=== PATIENT | male | born 1935 | race Two or more races ===

== ENCOUNTER 2019-04-24 10:57 | Inpatient (IN) | payer OTHER ==
[2019-04-24 11:03] VITALS: BMI 25.0
--- NOTE | 2019-04-24 12:56 | PDOC ---
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 He describes the pain as a squeezing and heavy sensation which is worse after he performs physical activity. The patient states he has also been very short of breath lately after performing routine physical activities. He denies chest pain or SOB at rest. He does endorse occasional difficulty lying flat of late. Patient states he has never had a heart attack and has never been formally diagnosed with heart failure. Patient endorses nausea with his chest pain but denies emesis. States the pain does not radiate to his neck, arm, or back. Denies fevers, chills, infections, cough, vomiting, back pain, headache, vision changes, dysuria, frequency, or urgency. PCP: Maykel Lua PSH: None reported Allergies: Aspirin Social Hx: Denies smoking, drinking, or other substance usage Meds: 1) Metformin 1000 2) Tamsulosin 0.4 3) Zolpidem 10 mg 4) Atorvastatin 10 mg 5) APAP 325 6) butalbital 50 7) caffeine 40 8) pioglitazone 30 mg 9) Amlodipine 10 mg 10) Torsemide 10 mg 11) Famotidine 40 mg 12) Oxybutinin 10 mg Past History - Past Medical History Allergies/Adverse Reactions: Allergies Allergy/AdvReac Type Severity Reaction Status Date / Time aspirin Allergy Verified 04/24/19 11:03 Home Medications: Ambulatory Orders Amlodipine Besylate 10 mg PO DAILY 04/24/19 Atorvastatin Calcium 10 mg PO DAILY 04/24/19 Butalb/Acetaminophen/Caffeine [Fioricet Tablet 50-325-40] 1 tab PO Q4H PRN 04/24 Famotidine [Pepcid -] 40 mg PO DAILY 04/24/19 Oxybutynin Chloride [Oxybutynin Chloride ER] 10 mg PO DAILY 04/24/19 Tamsulosin HCl 0.4 mg PO DAILY 04/24/19 Zolpidem Tartrate 10 mg PO HS PRN 04/24/19 metFORMIN HCL [Metformin ER Osmotic] 1,000 mg PO BID 04/24/19 COPD: No Diabetes: Yes GI Disorders: Yes (ULCER) HTN: Yes - Psycho Social/Smoking Cessation Hx Smoking History: Never smoked Hx Alcohol Use: No Drug/Substance Use Hx: No Review of Systems - Review of Systems Able to Perform ROS?: Yes Comments:: CONSTITUTIONAL: Absent: fever, no chills, no fatigue EYES: Absent: visual changes ENT: Absent: ear pain, no sore throat CARDIOVASCULAR: Present: Chest pain Absent: no palpitations RESPIRATORY: Present: SOB Absent: cough GI: Present: Nausea Absent: abdominal pain, no vomiting, no constipation, no diarrhea GENITOURINARY: Absent: dysuria, no frequency, no hematuria MUSKULOSKELETAL: Absent: back pain, no arthralgia, no myalgia SKIN: Absent: rash NEURO: Absent: headache *Physical Exam - Vital Signs Last Vital Signs Temp Pulse Resp BP Pulse Ox 98.5 F 79 16 180/85 H 100 04/24/19 11:00 04/24/19 11:50 04/24/19 11:50 04/24/19 11:50 04/24/19 11:50 - Physical Exam GENERAL: Well-appearing, well-nourished. No apparent distress. HEENT: Left eye white and blind. Normocephalic, atraumatic. PERRL, EOM intact. CARDIOVASCULAR: Normal S1, S2. Regular rate and rhythm. PULMONARY: There are b/l crackles at the lung bases. No evidence of respiratory distress. No wheezing or rhonchi. ABDOMEN: Soft, non-distended, non-tender. EXTREMITIES: 1+ edema in both lower legs. Normal ROM in all four extremities. No gross deformities. SKIN: Warm, dry. No rash NEUROLOGICAL: No focal neurological deficits. Heart Score/ECG Review - History History: Moderately suspicious - Electrocardiogram EKG: Normal - Age Age: >/= 65 - Risk Factors Risk Factors Heart Score: Yes Hx Hypercholesterolemia, Yes Hx Hypertension, Yes Hx Diabetes, Yes Positive family hx of cardiac disease Based on the list above the patient has:: >/=3 risk factors or Hx atherosclerotic disease - Troponin Troponin: </= normal limit - Score Heart Score - Total: 5 - ECG Intrepretation Rhythm: Regular Rhythm - Eastpoint Eastpoint: Normal - P and TN Atrial Enlargement: Left - QRS Poor R Wave Progression: No Q Wave Present: No - ST and T Early Repolarization: No Non Specific ST-T Wave changes: No Flattened T Waves: No Prolonged Q-T Interval: No - ECG Impressions Normal ECG: No Non-specific ST Elevation: No Ischemic Changes: No ED Treatment Course - LABORATORY CBC & Chemistry Diagram: 04/24/19 13:20 04/24/19 13:20 Medical Decision Making - Medical Decision Making Anila Boss is an 83 yo M w a hx of HTN, HCL, NIDDM, 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 He describes the pain as a squeezing and heavy sensation which is worse after he performs physical activity. The patient states he has also been very short of breath lately after performing routine physical activities. He denies chest pain or SOB at rest. He does endorse occasional difficulty lying flat of late. Patient states he has never had a heart attack and has never been formally diagnosed with heart failure. Patient endorses nausea with his chest pain but denies emesis. States the pain does not radiate to his neck, arm, or back. Vital Signs Temp Pulse Resp BP Pulse Ox 98.5 F 79 16 180/85 H 100 04/24/19 11:00 04/24/19 11:50 04/24/19 11:50 04/24/19 11:50 04/24/19 11:50 DDx IBNLT: ACS - NSTEMI vs unstable angina, heart failure, electrolyte/ metabolic disturbance, renal failure, PNA, pneumothorax Plan: Labs, EKG, CXR, Cardiac consult, admit Tele Labs: Hyperkalemia, elevated BUN/Cr EKG: NS rate 87, narrow complexes w premature atrial complexes, normal axis, LAE , no ST elevations or depressions, no Q waves, no abnormal TWI's. QTc 450. CXR: unremarkable Disposition: Admit to Tele for chest pain Discharge - Discharge Information Problems reviewed: Yes Clinical Impression/Diagnosis: Hyperkalemia, AMINATA (acute kidney injury) Chest pain Qualifiers: Chest pain type: unspecified Qualified Code(s): R07.9 - Chest pain, unspecified Condition: Stable - Admission Yes - Follow up/Referral Referrals: Lua,Maykel S [Primary Care Provider] - - Patient Discharge Instructions - Post Discharge Activity
[2019-04-24 13:37] LABS: HEMATOCRIT 36.1 % (35.4-49); HEMOGLOBIN 12.1 GM/dL (11.7-16.9); MCH 29.2 pg (25.7-33.7); MCHC 33.6 g/dl (32.0-35.9); MEAN CELL VOLUME 86.8 fl (80-96); MEAN PLT VOLUME 9.1 fl (7.5-11.1); PLATELET COUNT 215 K/MM3 (134-434); RBC 4.16 M/mm3 (4.00-5.60); RDW 13.8 % (11.9-15.9)
[2019-04-24 13:50] LABS: WHITE BLOOD COUNT 6.5 K/mm3 (4.0-10.0)
[2019-04-24 14:07] LABS: ALBUMIN 3.8 g/dl (3.4-5.0); BILIRUBIN,TOTAL 0.2 mg/dL (0.2-1); CALCIUM 9.7 mg/dL (8.5-10.1); CREATININE 1.7 mg/dL (0.55-1.3); POTASSIUM 5.6 mmol/L (3.5-5.1); TOT PROT 7.7 g/dl (6.4-8.2)
[2019-04-24] MEDS ORDERED: FUROSEMIDE 40 MG/4 ML INJECTABLE VIAL IVPUSH ONE (14:14)
[2019-04-24] MEDS ORDERED: FUROSEMIDE 40 MG/4 ML INJECTABLE VIAL ONE ×2 (14:18→16:16)
--- NOTE | 2019-04-24 16:04 | PDOC ---
Attending Attestation - Resident Resident Name: Abhijit Burch - ED Attending Attestation I have performed the following: I have examined & evaluated the patient, The case was reviewed & discussed with the resident, I agree w/resident's findings & plan - HPI HPI: 04/24/19 15:58 83-year-old male with multiple medical problems including [id number]-[id number] diabetes, hypertension presents with episode of chest pain this morning with shortness of breath, now resolved. Patient has history of gastritis, reports chest burning symptoms occasionally associated with some shortness of breath, had a stronger episode this morning while at rest at home, presents for evaluation. Denies any exertional limitations at baseline, last stress test was about 10 years ago, denies any nausea/vomiting/diarrhea. Sees Dr. Felder for GI issues, ? gastritis diagnosis on PPI. - Physicial Exam PE: 04/24/19 16:02 elevated BP improved without intervention, afebrile, o2 sat wnl Well-appearing seated comfortably in stretcher Left eye cataract, moist mucosa Heart is regular without ectopy or murmur, lungs are clear Abdomen benign No edema - Medical Decision Making 04/24/19 16:03 83-year-old male with multiple cardiac risk factors presents with epigastric/ chest discomfort and shortness of breath this morning, now resolved. Hemodynamically stable here without focality on exam, EKG not acutely ischemic. ACS most concerning on differential given risk factors and no recent cardiac evaluation, gastritis/GERD exacerbation is also on the differential. Labs including troponin are within normal limits EKG shows no acute ischemic changes Chest x-ray Admission Heart Score/ECG Review #1 ECG reviewed & interpreted by me at: 13:48 General ECG Interpretation: Sinus Rhythm, Normal Rate (88), Normal Intervals ( qtc 433, LVH), No acute ischemic changes Compared to previous ECG there are: Previous ECG unavail
--- NOTE | 2019-04-24 16:10 | CON.CARD ---
Consult Consult Specialty:: Cardiology Referred by:: Emergency Medicine Reason for Consultation:: Chest burning, dyspnea, HTN urgency - History of Present Illness Chief Complaint: Chest burning, dyspnea History of Present Illness: Anila Boss is an 83 yo M w a hx of HTN, HCL, NIDDM, diabetic retinopathy s/ p Left eye blindness, gastritis and BPH who presents to the [facility] er with two days of burning substernal chest pressure worse post-prandial, denies exertional component. He denies chest pain or SOB at rest, orthopnea, PND or LE edema. Patient states he has never had a heart attack and has never been formally diagnosed with heart failure. Patient endorses nausea with his chest pain but denies emesis. He denies near or true syncope, palpitations. PCP: Maykel Lua PSH: None reported Allergies: Aspirin Social Hx: Denies smoking, drinking, or other substance usage - History Source History Provided By: Patient Limitations to Obtaining History: No Limitations - Past Medical History Cardio/Vascular: Yes: HTN, Hyperlipdemia Gastrointestinal: Yes: Gastritis, Hiatal Hernia - Alcohol/Substance Use Hx Alcohol Use: No - Smoking History Smoking history: Never smoked Home Medications - Allergies Allergies/Adverse Reactions: Allergies Allergy/AdvReac Type Severity Reaction Status Date / Time aspirin Allergy Verified 04/24/19 11:03 - Home Medications Home Medications: Ambulatory Orders Amlodipine Besylate 10 mg PO DAILY 04/24/19 Atorvastatin Calcium 10 mg PO DAILY 04/24/19 Butalb/Acetaminophen/Caffeine [Fioricet Tablet 50-325-40] 1 tab PO Q4H PRN 04/24 Famotidine [Pepcid -] 40 mg PO DAILY 04/24/19 Oxybutynin Chloride [Oxybutynin Chloride ER] 10 mg PO DAILY 04/24/19 Tamsulosin HCl 0.4 mg PO DAILY 04/24/19 Zolpidem Tartrate 10 mg PO HS PRN 04/24/19 metFORMIN HCL [Metformin ER Osmotic] 1,000 mg PO BID 04/24/19 Review of Systems - Review of Systems Cardiovascular: reports: Chest Pain, Shortness of Breath Gastrointestinal: reports: Nausea Vital Signs: Vital Signs Temperature 98.5 F 04/24/19 11:00 Pulse Rate 79 04/24/19 11:50 Respiratory Rate 16 04/24/19 11:50 Blood Pressure 180/85 H 04/24/19 11:50 O2 Sat by Pulse Oximetry (%) 100 04/24/19 11:50 Constitutional: Yes: No Distress, Calm, Thin Neck: Yes: Supple Respiratory: Yes: Regular, CTA Bilaterally Gastrointestinal: Yes: Normal Bowel Sounds, Soft Cardiovascular: Yes: Regular Rate and Rhythm JVD: No Carotid Bruit: No Heart Sounds: Yes: S1, S2 Murmur: Yes: Systolic Murmur, Grade 1 Edema: No - Other Data Labs, Other Data: CBC, BMP 04/24/19 13:20 04/24/19 13:20 Troponin, BNP 04/24/19 04/24/19 13:20 13:20 Troponin I 0.03 B-Natriuretic Peptide 241.5 Troponin, BNP 04/24/19 04/24/19 13:20 13:20 Troponin I 0.03 B-Natriuretic Peptide 241.5 NSR @ 87 PAC, LAE Ejection Fraction %: LVEF > or = 40 % Imaging - Results Chest X-ray: Report Reviewed (NAD) Problem List - Problems (1) Hypertensive heart disease Code(s): I11.9 - HYPERTENSIVE HEART DISEASE WITHOUT HEART FAILURE Qualifiers: Heart failure presence: without heart failure Qualified Code(s): I11.9 - Hypertensive heart disease without heart failure (2) Type 2 diabetes mellitus Code(s): E11.9 - TYPE 2 DIABETES MELLITUS WITHOUT COMPLICATIONS Qualifiers: Diabetes mellitus buttermaker helper insulin use: without fci use (3) AMINATA (acute kidney injury) Code(s): N17.9 - ACUTE KIDNEY FAILURE, UNSPECIFIED (4) Chest pain Code(s): R07.9 - CHEST PAIN, UNSPECIFIED Qualifiers: Chest pain type: precordial pain Qualified Code(s): R07.2 - Precordial pain (5) Hyperkalemia Code(s): E87.5 - HYPERKALEMIA Assessment/Plan EKG: NS rate 87, narrow complexes w premature atrial complexes, normal axis, LAE , no ST elevations or depressions, no Q waves, no abnormal TWI's. QTc 450. CXR: unremarkable 1. Chest pain, AVENDAÑO, hypertensive urgency, r/o ischemia vs diabetic gastroparesis 2. Type 2 DM c/b retinopathy and blindness OS 3. Hyperlipidemia 4. BPH P:1. Ruling out for [place], check TSH, lipid panel, Ha1c 2. Start carvedilol 6.25 bid, losartan once renal fxn and hyperkalemia stabilizes, Lipitor 10 qd, empirically change Pepcid 40 qd to Protonix 20 qd 3. Echocardiogram to assess ventricular and valve fxn 4. Stress testing to r/o ischemia may be performed as outpatient 5. Thank you for consultative opportunity
[2019-04-24 16:41] LABS: ANISOCYTOSIS 1+; MACROCYTOSIS 0; PLATELET ESTIMATE NORMAL
--- NOTE | 2019-04-24 17:49 | HP ---
Admitting History and Physical - Primary Care Physician PCP: Jacqueline Damon - Admission History of Present Illness: Anila Boss is an 83 yo M w a hx of HTN, HCL, NIDDM, diabetic retinopathy s/ p Left eye blindness and BPH who presents to the [facility] er with two days of substernal chest pain. He describes the pain as a squeezing and heavy sensation which is worse after he performs physical activity. The patient states he has also been very short of breath lately after performing routine physical activities. He denies chest pain or SOB at rest. He does endorse occasional difficulty lying flat of late. Patient states he has never had a heart attack and has never been formally diagnosed with heart failure. Patient endorses nausea with his chest pain but denies emesis. States the pain does not radiate to his neck, arm, or back. - Past Medical History Cardiovascular: Yes: HTN, Hyperlipdemia Gastrointestinal: Yes: Gastritis, Hiatal Hernia - Smoking History Smoking history: Never smoked - Alcohol/Substance Use Hx Alcohol Use: No Home Medications - Allergies Allergies/Adverse Reactions: Allergies Allergy/AdvReac Type Severity Reaction Status Date / Time aspirin Allergy Verified 04/24/19 11:03 - Home Medications Home Medications: Ambulatory Orders Amlodipine Besylate 10 mg PO DAILY 04/24/19 Atorvastatin Calcium 10 mg PO DAILY 04/24/19 Butalb/Acetaminophen/Caffeine [Fioricet Tablet 50-325-40] 1 tab PO Q4H PRN 04/24 Famotidine [Pepcid -] 40 mg PO DAILY 04/24/19 Oxybutynin Chloride [Oxybutynin Chloride ER] 10 mg PO DAILY 04/24/19 Tamsulosin HCl 0.4 mg PO DAILY 04/24/19 Zolpidem Tartrate 10 mg PO HS PRN 04/24/19 metFORMIN HCL [Metformin ER Osmotic] 1,000 mg PO BID 04/24/19 Physical Examination Vital Signs: Vital Signs Temperature 98.5 F 04/24/19 11:00 Pulse Rate 79 04/24/19 11:50 Respiratory Rate 16 04/24/19 11:50 Blood Pressure 180/85 H 04/24/19 11:50 O2 Sat by Pulse Oximetry (%) 100 04/24/19 11:50 Constitutional: Yes: No Distress HENT: Yes: Atraumatic Neck: Yes: Supple Cardiovascular: Yes: Regular Rate and Rhythm Respiratory: Yes: Rhonchi Gastrointestinal: Yes: Normal Bowel Sounds Extremities: Yes: WNL Edema: No Peripheral Pulses WNL: Yes Neurological: Yes: Alert, Oriented Labs: CBC, BMP 04/24/19 13:20 04/24/19 13:20 Problem List - Problems (1) Chest pain Assessment/Plan: tele monitoring fu cardiac enzymes cardiology consult Code(s): R07.9 - CHEST PAIN, UNSPECIFIED Qualifiers: Chest pain type: precordial pain Qualified Code(s): R07.2 - Precordial pain (2) Hypertensive heart disease Assessment/Plan: on meds monitor bp Code(s): I11.9 - HYPERTENSIVE HEART DISEASE WITHOUT HEART FAILURE Qualifiers: Heart failure presence: without heart failure Qualified Code(s): I11.9 - Hypertensive heart disease without heart failure (3) Type 2 diabetes mellitus Code(s): E11.9 - TYPE 2 DIABETES MELLITUS WITHOUT COMPLICATIONS Qualifiers: Diabetes mellitus skilled nursing insulin use: without long distance billing operator use Assessment/Plan Laboratory Tests 04/24/19 04/24/19 04/24/19 13:20 13:20 13:20 WBC 6.5 RBC 4.16 Hgb 12.1 Hct 36.1 MCV 86.8 MCH 29.2 MCHC 33.6 RDW 13.8 Plt Count 215 MPV 9.1 Neutrophils % No Result Required. Neutrophils % (Manual) 40.6 L Band Neutrophils % 0.0 Lymphocytes % No Result Required. Lymphocytes % (Manual) 35.7 Monocytes % (Manual) 10 Eosinophils % (Manual) 5.9 H Basophils % (Manual) 2.0 Myelocytes % (Man) 0 Promyelocytes % (Man) 0 Blast Cells % (Manual) 0 Nucleated RBC % 0 Metamyelocytes 0 Hypochromia 0 Platelet Estimate Normal Polychromasia 0 Poikilocytosis 0 Anisocytosis 1+ Microcytosis 1+ Macrocytosis 0 Sodium Potassium Chloride Carbon Dioxide Anion Gap BUN Creatinine Est GFR (CKD-EPI)AfAm Est GFR (CKD-EPI)NonAf Random Glucose Calcium Magnesium Total Bilirubin AST ALT Alkaline Phosphatase Creatine Kinase 86 Troponin I 0.03 B-Natriuretic Peptide 241.5 Total Protein Albumin 04/24/19 04/24/19 13:20 13:20 WBC RBC Hgb Hct MCV MCH MCHC RDW Plt Count MPV Neutrophils % Neutrophils % (Manual) Band Neutrophils % Lymphocytes % Lymphocytes % (Manual) Monocytes % (Manual) Eosinophils % (Manual) Basophils % (Manual) Myelocytes % (Man) Promyelocytes % (Man) Blast Cells % (Manual) Nucleated RBC % Metamyelocytes Hypochromia Platelet Estimate Polychromasia Poikilocytosis Anisocytosis Microcytosis Macrocytosis Sodium 138 Potassium 5.6 H Chloride 105 Carbon Dioxide 29 Anion Gap 4 L BUN 28.0 H Creatinine 1.7 H Est GFR (CKD-EPI)AfAm 41.69 Est GFR (CKD-EPI)NonAf 35.97 Random Glucose 163 H Calcium 9.7 Magnesium 2.0 Total Bilirubin 0.2 AST 22 ALT 21 Alkaline Phosphatase 104 Creatine Kinase Troponin I B-Natriuretic Peptide Total Protein 7.7 Albumin 3.8 Active Medications Generic Name Dose Route Start Last Admin Trade Name Freq PRN Reason Stop Dose Admin Carvedilol 6.25 mg 04/24/19 22:00 Coreg - PO BID BRETT Pantoprazole Sodium 20 mg 04/24/19 17:30 Protonix - PO DAILY BRETT
[2019-04-24] MEDS ORDERED: PANTOPRAZOLE 20 MG TABLET (FP) PO ONE (17:50)
[2019-04-24] MEDS: PANTOPRAZOLE 20 MG TABLET (FP) PO SCH (18:05)
[2019-04-24] MEDS: CARVEDILOL 6.25 MG TABLET (FP) PO SCH (22:05)
[2019-04-24] MEDS ORDERED: CARVEDILOL 3.125 MG TABLET (FP) ONE (22:07)
[2019-04-25 08:49] LABS: BLOOD UREA NITROGEN 31.5 mg/dL (7-18); CREATININE 1.7 mg/dL (0.55-1.3); POTASSIUM 5.4 mmol/L (3.5-5.1)
[2019-04-25] MEDS ORDERED: ACETAMINOPHEN 325 MG TABLET (FP) PO ONE (09:03)
[2019-04-25] MEDS ORDERED: ACETAMINOPHEN 325 MG TABLET (FP) ONE (09:04)
[2019-04-25] MEDS: PANTOPRAZOLE 20 MG TABLET (FP) PO SCH (09:28)
[2019-04-25] MEDS: CARVEDILOL 6.25 MG TABLET (FP) PO SCH (09:28)
--- NOTE | 2019-04-25 12:44 | EKG ---
Test Reason : Blood Pressure : / mmHG Vent. Rate : 088 BPM Atrial Rate : 088 BPM P-R Int : 144 ms QRS Dur : 076 ms QT Int : 358 ms P-R-T Axes : 021 -20 -04 degrees QTc Int : 433 ms NORMAL SINUS RHYTHM NORMAL ECG Confirmed by MD ARANGO GREGORY ([id number]) on 04/25/2019 12:43:59 PM Also confirmed by MD Vasquez Daniel ([id number]) on 04/25/2019 12:44:04 PM Referred By: Confirmed By:Jose Vasquez MD
--- NOTE | 2019-04-25 12:44 | EKG ---
Test Reason : Blood Pressure : / mmHG Vent. Rate : 087 BPM Atrial Rate : 087 BPM P-R Int : 152 ms QRS Dur : 078 ms QT Int : 374 ms P-R-T Axes : 051 -01 038 degrees QTc Int : 450 ms POOR DATA QUALITY, INTERPRETATION MAY BE ADVERSELY AFFECTED SINUS RHYTHM WITH PREMATURE ATRIAL COMPLEXES POSSIBLE LEFT ATRIAL ENLARGEMENT BORDERLINE ECG NO PREVIOUS ECGS AVAILABLE Confirmed by MD Pedro, Jose ([id number]) on 04/25/2019 12:43:39 PM Referred By: Confirmed By:Jose Vasquez MD
--- NOTE | 2019-04-25 12:55 | ECHO ---
Version: 1 Name: ELISABET DESAI Exam: Adult Echocardiogram Study Date: 04/25/2019, 10:26 AM Age: 83 Years MMode/2D Measurements & Calculations IVSd: 1.06 cm LVIDs: 2.50 cm LVIDd: 3.3 cm LVPWd: 0.97 cm LAV (MOD-bp): 25.7 ml LVOT diam: 1.97 cm Ao root diam: 3.1 cm LA dimension: 2.9 cm Doppler Measurements & Calculations MV E max timi: 41.7 cm/sec Med E/e': 4.0 MV A max timi: 96.5 cm/sec Med Peak E' Timi: 10.4 cm/sec MV E/A: 0.43 Lat E/e': 12.0 Lat Peak E' Timi: 3.5 cm/sec Ao max P.8 mmHg Ao V2 max: 130.3 cm/sec AI P1/2t: 979.0 msec Left Ventricle The left ventricular size, thickness and function are normal. Ejection Fraction = 70%. The transmitr al spectral Doppler flow pattern is suggestive of impaired LV relaxation. Right Ventricle The right ventricle is normal in size and function. Atria Normal left and right atrial size and function. Mitral Valve The mitral valve is grossly normal. There is trace mitral regurgitation. Tricuspid Valve The tricuspid valve is not well visualized, but is grossly normal. There is Trace to mild tricuspid regurgitation. Aortic Valve There is trivial aortic sclerosis.;. Trace aortic regurgitation. Pulmonic Valve The pulmonic valve is not well seen, but is grossly normal. Great Vessels The aortic root is normal size. Normal aortic arch, descending and ascending aorta. Pericardium/Pleura There is no pericardial effusion. Summary Statements The left ventricular size, thickness and function are normal Ejection Fraction = 70%. The transmitral spectral Doppler flow pattern is suggestive of impaired LV relaxation. The right ventricle is normal in size and function. Normal left and right atrial size and function. The mitral valve is grossly normal. There is trace mitral regurgitation. The tricuspid valve is not well visualized, but is grossly normal. There is Trace to mild tricuspid regurgitation. There is trivial aortic sclerosis.; Trace aortic regurgitation. The pulmonic valve is not well seen, but is grossly normal. The aortic root is normal size. Normal aortic arch, descending and ascending aorta There is no pericardial effusion. Zane Rivas 04/25/2019, 12:55 PM Ordering Physician: Gab Duval Performed By: Sis Ellis
--- NOTE | 2019-04-25 12:59 | PN ---
Progress Note, Physician Chief Complaint: Events noted Not in distress History of Present Illness: Patient was seen and examined. Awake and alert. Chart was reviewed Denies chest pain, SOB or palpitations - Current Medication List Current Medications: Active Medications Atorvastatin Calcium (Lipitor -) 20 mg PO HS [facility] Carvedilol (Coreg -) 6.25 mg PO BID [facility] Last Admin: 04/25/19 09:28 Dose: 6.25 mg Pantoprazole Sodium (Protonix -) 20 mg PO DAILY [facility] Last Admin: 04/25/19 09:28 Dose: 20 mg - Objective Vital Signs: Vital Signs Temperature 98 F 04/25/19 09:28 Pulse Rate 84 04/25/19 10:10 Respiratory Rate 16 04/25/19 10:10 Blood Pressure 147/111 H 04/25/19 10:10 O2 Sat by Pulse Oximetry (%) 99 04/25/19 10:10 Neck: Yes: Supple Cardiovascular: Yes: Regular Rate and Rhythm, S1, S2 Respiratory: Yes: Diminished Gastrointestinal: Yes: Normal Bowel Sounds, Soft. No: Tenderness Edema: No Additional Findings/Remarks: - Review of Systems Constitutional: denies: Chills, Fever Cardiovascular: reports: Chest Pain. denies: Palpitations, (+) Shortness of Breath Respiratory: denies: Cough, Hemoptysis, Orthopnea, PND, (+) SOB, SOB on Exertion Gastrointestinal: denies: Abdominal Pain, Constipation, Diarrhea, Melena, Nausea , Rectal Bleeding, Vomiting Genitourinary: denies: Dysuria, Hematuria Neurological: denies: Dizziness, Headache, Seizure, Syncope Labs: CBC, BMP 04/24/19 13:20 04/25/19 07:15 Problem List - Problems (1) AMINATA (acute kidney injury) Code(s): N17.9 - ACUTE KIDNEY FAILURE, UNSPECIFIED (2) Chest pain Code(s): R07.9 - CHEST PAIN, UNSPECIFIED Qualifiers: Chest pain type: precordial pain Qualified Code(s): R07.2 - Precordial pain (3) Hyperkalemia Code(s): E87.5 - HYPERKALEMIA (4) Hypertensive heart disease Code(s): I11.9 - HYPERTENSIVE HEART DISEASE WITHOUT HEART FAILURE Qualifiers: Heart failure presence: without heart failure Qualified Code(s): I11.9 - Hypertensive heart disease without heart failure (5) Type 2 diabetes mellitus Code(s): E11.9 - TYPE 2 DIABETES MELLITUS WITHOUT COMPLICATIONS Qualifiers: Diabetes mellitus manager terminal insulin use: without group home use Assessment/Plan 1. Chest pain, AVENDAÑO and hypertensive urgency 2. Type 2 DM with retinopathy 3. Hyperlipidemia 4. BPH PLAN: 1. Continue Carvedilol 6.25 mg BID and start Losartan once renal function and hyperkalemia stabilizes. Continue Lipitor 10 mg QHS 2. Echocardiogram to assess LV/RV and valvular function 3. Stress testing to r/o ischemia may be performed as outpatient 4. Follow up in our office as outpatient ([facility]) upon discharge Jules Kenney MD
--- NOTE | 2019-04-25 17:01 | DS ---
Physical Examination Vital Signs: Vital Signs Temperature 97.6 F 04/25/19 15:19 Pulse Rate 82 04/25/19 15:19 Respiratory Rate 18 04/25/19 15:19 Blood Pressure 159/103 H 04/25/19 15:19 O2 Sat by Pulse Oximetry (%) 99 04/25/19 15:19 Constitutional: Yes: No Distress HENT: Yes: Atraumatic Neck: Yes: Supple Cardiovascular: Yes: Regular Rate and Rhythm Respiratory: Yes: CTA Bilaterally Gastrointestinal: Yes: Normal Bowel Sounds Extremities: Yes: WNL Neurological: Yes: Alert, Oriented Labs: CBC, BMP 04/24/19 13:20 04/25/19 07:15 Discharge Summary Problems reviewed: Yes Reason For Visit: ACUTE KIDNEY INJURY Current Active Problems AMINATA (acute kidney injury) (Acute) Chest pain (Acute) Hyperkalemia (Acute) Hypertensive heart disease (Acute) Type 2 diabetes mellitus (Acute) Condition: Stable - Instructions Referrals: Maykel Lua [Primary Care Provider] - Jules Kenney MD [Staff Physician] - Gab Duval MD [Staff Physician] - Disposition: HOME - Home Medications Comprehensive Discharge Medication List: Ambulatory Orders Amlodipine Besylate 10 mg PO DAILY 04/24/19 Atorvastatin Calcium 10 mg PO DAILY 04/24/19 Butalb/Acetaminophen/Caffeine [Fioricet Tablet 50-325-40] 1 tab PO Q4H PRN 04/24 Famotidine [Pepcid -] 40 mg PO DAILY 04/24/19 Oxybutynin Chloride [Oxybutynin Chloride ER] 10 mg PO DAILY 04/24/19 Tamsulosin HCl 0.4 mg PO DAILY 04/24/19 Zolpidem Tartrate 10 mg PO HS PRN 04/24/19 metFORMIN HCL [Metformin ER Osmotic] 1,000 mg PO BID 04/24/19 in home
[2019-04-25 17:48] VITALS: BP 170/95; PULSE 77; TEMP 98
[2019-04-25] MEDS ORDERED: ATORVASTATIN CA 20 MG TABLET (FP) PO SCH (22:00)
== END 2019-04-25 18:00 | disposition home or self-care (01) | DRG 684 ==
LOC: JER 10:57 → JERBED 15:00 → OBSVTOIN 17:49
PROVIDERS: ADMIT Internal Medicine; ATTEND Internal Medicine
DX: N17.9 Acute kidney failure, unspecified (principal); E87.5 Hyperkalemia; E11.319 Type 2 diabetes mellitus with unspecified diabetic retinopathy without macular edema; R07.9 Chest pain, unspecified; I11.9 Hypertensive heart disease without heart failure; E78.5 Hyperlipidemia, unspecified; N40.0 Benign prostatic hyperplasia without lower urinary tract symptoms; I16.0 Hypertensive urgency
CPT/HCPCS: 36415; 71046-TC-FY; 80048; 80053; 80061; 82550; 83036; 83721; 83735; 83880; 84443; 84484; 85025; 93005; 93010; 93306-TC; 99285-25; G0378